=== PATIENT | female | born 1995 | race Hispanic/Latino ===

== ENCOUNTER 2017-01-27 22:18 | Emergency (ER) | payer SELFPAY ==
[2017-01-28 02:18] VITALS: BP 120/68
[2017-01-28 03:16] LABS: Bilirubin,Urine NEG (Negative); Blood,Urine NEG (Negative); Ketones,Urine NEG (Negative); Leukocyte Esterase,Urine LG (Negative); Mucus,Urine FEW /HPF; Nitrite,Urine NEG (Negative); Urobilinogen,Urine < 2.0 mg/dL (<2.0)
--- NOTE | 2017-01-28 03:58 | Emergency Department Report ---
ED Female HPI - General Chief complaint: Urogenital-Female Stated complaint: VAGINAL PAIN Time Seen by Provider: 01/28/17 03:38 Source: patient, family Mode of arrival: Ambulatory Limitations: No Limitations - History of Present Illness Initial comments: Patient here reports that she has sharp vaginal pain times one week. Patient says she had to insert 5 months ago and had a . She says she has not resumed sexual activity. Patient reports that she has vaginal discharge. Denies any vaginal bleeding. And she is also reporting that she doesn't think her control is regulated. Denies any abdominal pain or back pain. Denies any fever or chills. Denies any nausea or vomiting. She says she has no concerns for STD. MD Complaint: vaginal discharge, dysuria Onset/Timin -: week(s) Location: other (vaginal pain) Radiation: non-radiating Severity: severe Severity scale (0 -10): 8 Quality: burning Consistency: intermittent Improves with: none Worsens with: urination Are you Now?: No Associated Symptoms: vaginal discharge, dysuria. denies: vaginal bleeding, abdominal pain, nausea/vomiting, fever/chills, headaches, loss of appetite, hematuria, rash, seizure, shortness of breath, syncope, weakness - Related Data Sexually active: No Previous Rx's Medication Instructions Recorded Last Taken Type Fluconazole [Diflucan TAB] 100 mg PO QDAY #2 tablet 01/28/17 Unknown Rx Nitrofurantoin [place]/M-Cryst 100 mg PO Q12HR #14 capsule 01/28/17 Unknown Rx [Macrobid CAP] Nystatin Cream [Mycostatin Cream] 1 applic TP BID #1 tube 01/28/17 Unknown Rx Allergies Allergy/AdvReac Type Severity Reaction Status Date / Time Sulfa (Sulfonamide Allergy Hives Verified 04/22/14 20:32 Antibiotics) ED Review of Systems ROS: Stated complaint: VAGINAL PAIN Other details as noted in HPI Comment: All other systems reviewed and negative Constitutional: denies: chills, fever ENT: denies: throat pain Respiratory: no symptoms reported Cardiovascular: denies: chest pain, palpitations, edema, syncope Gastrointestinal: denies: abdominal pain, nausea, vomiting, diarrhea Genitourinary: dysuria, discharge. denies: urgency, frequency, hematuria, abnormal menses Musculoskeletal: denies: back pain, joint swelling, arthralgia, myalgia Skin: denies: rash Neurological: denies: headache, numbness, paresthesias ED Past Medical Hx - Past Medical History Previous Medical History?: Yes Hx Hypertension: Yes (GESTATIONAL HYPERTENSION) Hx Heart Attack/AMI: No Hx Congestive Heart Failure: No Hx Diabetes: No Hx Deep Vein Thrombosis: No Hx Renal Disease: No Hx Sickle Cell Disease: No Hx Seizures: No Hx Asthma: Yes (LAST ATTACK WAS 2014) Hx COPD: No Hx HIV: No - Surgical History Past Surgical History?: Yes Additional Surgical History: C-sections - Family History Family history: no significant - Social History Smoking Status: Never Smoker Substance Use Type: None - Medications Home Medications: Home Medications Medication Instructions Recorded Confirmed Last Taken Type Fluconazole [Diflucan TAB] 100 mg PO QDAY #2 tablet 01/28/17 Unknown Rx Nitrofurantoin [place]/M-Cryst 100 mg PO Q12HR #14 capsule 01/28/17 Unknown Rx [Macrobid CAP] Nystatin Cream [Mycostatin Cream] 1 applic TP BID #1 tube 01/28/17 Unknown Rx ED Physical Exam - General Limitations: No Limitations General appearance: alert, in no apparent distress - Head Head exam: Present: atraumatic, normocephalic, normal inspection - Eye Eye exam: Present: normal appearance, PERRL, EOMI Pupils: Present: normal accommodation - ENT ENT exam: Present: normal exam, normal orophraynx, mucous membranes moist, TM's normal bilaterally, normal external ear exam - Neck Neck exam: Present: normal inspection, full ROM. Absent: tenderness, lymphadenopathy - Respiratory Respiratory exam: Present: normal lung sounds bilaterally. Absent: respiratory distress, chest wall tenderness - Cardiovascular Cardiovascular Exam: Present: regular rate, normal rhythm, normal heart sounds - GI/Abdominal GI/Abdominal exam: Present: soft. Absent: distended - External exam: Present: erythema. Absent: swelling, lesions, lacerations, ecchymosis, bleeding Speculum exam: Present: vaginal discharge, cervical discharge. Absent: erythema , vaginal bleeding, foreign body, tissue, laceration Bi-manual exam: Present: normal bi-manual exam - Extremities Exam Extremities exam: Present: normal inspection, full ROM, normal capillary refill. Absent: tenderness, pedal edema, joint swelling, calf tenderness - Back Exam Back exam: Present: normal inspection, full ROM. Absent: tenderness, CVA tenderness (R), CVA tenderness (L), muscle spasm, paraspinal tenderness, vertebral tenderness, rash noted - Neurological Exam Neurological exam: Present: alert, oriented X3, normal gait - Psychiatric Psychiatric exam: Present: normal affect, normal mood - Skin Skin exam: Present: warm, dry, intact, normal color. Absent: rash ED Course Vital Signs 01/27/17 01/28/17 22:36 02:17 Temperature 98.5 F Pulse Rate 77 64 Respiratory 18 18 Rate Blood Pressure 107/66 Blood Pressure 120/68 [Right] O2 Sat by Pulse 100 100 Oximetry - Reevaluation(s) Reevaluation #1: 01/28/17 05:33 Patient given Flagyl 2 g by mouth, Rocephin 1 g IM to treat UTI and gonorrhea. She was also given Zithromax 1 g by mouth. Patient saw reveals that she has symmetric, no yeast or clue cells. Gonorrhea and chlamydia test is pending and patient chose to be treated empirically for gonorrhea and chlamydia. ED Medical Decision Making - Lab Data Lab Results 01/27/17 01/28/17 Range/Units 02:12 02:12 Urine Color Yellow (Yellow) Urine Turbidity Cloudy (Clear) Urine pH 7.0 (5.0-7.0) Ur Specific [place] 1.015 (1.003-1.030) Urine Protein 30 mg/dl (Negative) mg/dL Urine Glucose (UA) Neg (Negative) mg/dL Urine Ketones Neg (Negative) mg/dL Urine Blood Neg (Negative) Urine Nitrite Neg (Negative) Urine Bilirubin Neg (Negative) Urine Urobilinogen < 2.0 (<2.0) mg/dL Ur Leukocyte Esterase Lg (Negative) Urine WBC (Auto) 74.0 H (0.0-6.0) /HPF Urine RBC (Auto) 10.0 (0.0-6.0) /HPF U Epithel Cells (Auto) 2.0 (0-13.0) /HPF Urine Mucus Few /HPF Urine HCG, Qual Negative (Negative) Wet prep revealed rare Trichomonas, no clue cells and no yeast. Urine culture is pending. Gonorrhea and Chlamydia pending - Medical Decision Making ED course: Patient with acute cystitis without hematuria, positive for Trichomonas, dysuria and physical vaginitis. I discussed with patient that her swab came back positive for Trichomonas negative bacterial vaginosis and yeast infection. Lab results and treatment plan with patient her results and treatment plan discussed with patient. Patient was given Rocephin 1 g IM to treat urinary tract infection and gonorrhea. She was given Flagyl 2 to gram by mouth for Trichomonas and she chose to be treated for Chlamydia and was given Zithromax 1 g by mouth. She had no adverse reaction from medication. Patient discharged home with prescription for Macrobid, nystatin cream, Diflucan and to follow-up with her primary care physician and/or her [facility] doctor. Discussed with her that she had protein in her urine in this could be because she had hypertension during her given her but she'll need to follow-up with a doctor to get repeat urinalysis. She voiced understanding. Critical care attestation.: If time is entered above; I have spent that time in minutes in the direct care of this critically ill patient, excluding procedure time. ED Disposition Clinical Impression: Trichomonas vaginitis, Vulvovaginitis, STD (sexually transmitted disease), Acute cystitis without hematuria Proteinuria Qualifiers: Proteinuria type: unspecified Qualified Code(s): R80.9 - Proteinuria, unspecified Disposition: DISCHARGED TO HOME OR SELFCARE Is pt being admited?: No Does the pt Need Aspirin: No Condition: Stable Instructions: Safe Sex (ED), Trichomoniasis (ED), Urinary Tract Infection in Women (ED), Vulvovaginal Candidiasis (ED), Dysuria (ED) Additional Instructions: Please follow up with your primary care physician or your [facility] doctor in 7-10 days for repeat testing and for STD. Please avoid having sex for the next 10 days. practice safe sex. test for gonorrhea and chlamydia will take 5 days to return and he will be called with results if positive. Please take antibiotic as prescribed. You were treated in the emergency room for gonorrhea, Chlamydia and Trichomonas. You Have protein in your urine so you will need to follow up with your primary care physician for repeat urinalysis Please avoid drinking alcohol for the next 7 days as medication that was given to treat Trichomonas can have negative reaction with alcohol. Prescriptions: Fluconazole [Diflucan TAB] 100 mg PO QDAY #2 tablet Nitrofurantoin [place]/M-Cryst [Macrobid CAP] 100 mg PO Q12HR #14 capsule Nystatin Cream [Mycostatin Cream] 1 applic TP BID #1 tube Referrals: PRIMARY CARE,MD [Primary Care Provider] - 2-3 Days Your, [facility] [Other] - 7-10 days Forms: Accompanied Note, Work/School Release Form(ED)
[2017-01-28] MEDS ORDERED: ROCEPHIN IM STA (05:32)
[2017-01-28] MEDS ORDERED: FLAGYL PO ONE (05:32)
[2017-01-28] MEDS ORDERED: XYLOCAINE 1% MPF 5 mL INFILTRATI ONE (05:32)
[2017-01-28] MEDS ORDERED: ZITHROMAX PO ONE (05:32)
== END 2017-01-28 06:10 | disposition home or self-care (01) ==
LOC: ED 22:18
DX: N76.0 Acute vaginitis (principal); A64 Unspecified sexually transmitted disease; N30.00 Acute cystitis without hematuria; R80.9 Proteinuria, unspecified; J45.909 Unspecified asthma, uncomplicated; Z88.2 Allergy status to sulfonamides
CPT/HCPCS: 81001; 81025; 87086; 87210; 87591; 96372; 99284; J0696

== ENCOUNTER 2017-04-21 17:15 | Emergency (ER) | payer SELFPAY ==
[2017-04-21 18:25] VITALS: BP 119/79
--- NOTE | 2017-04-21 18:28 | Emergency Department Report ---
Entered by SHAHLA BRAUN, acting as scribe for ELO CADE NP. Chief Complaint: Urogenital-Female Stated Complaint: VAGINAL DISCOMFORT Time Seen by Provider: 04/21/17 18:18 - HPI History of Present Illness: 21 y/o female presents with intermittent vaginal itching and burning that started in January, months ago with the most recent episode being persistent for 4 days. Pt notes she was treated for STD but her partner was not. After she obtained similar Sx again, she was re-treated with her partner. She is here today stating that similar Sx have reoccurred. She denies having sexual contact since being treated for her second episode. Pt denies fever. She denies ETOH, tobacco or drug use. - ROS Review of Systems: +vaginal irritation and pain -fever - Exam Physical Exam: Pt is well, non-toxic, NAD. : exam not done in triage MSE screening note: Focused history and physical exam performed. Due to findings the following was ordered: ED Disposition for MSE Condition: Stable This documentation as recorded by the scribe,SHAHLA BRAUN,accurately reflects the service I personally performed and the decisions made by me,ELO CADE [employer]ESS OPERATOR.
[2017-04-21 19:00] LABS: Bilirubin,Urine NEG (Negative); Blood,Urine NEG (Negative); Ketones,Urine TR mg/dL (Negative); Leukocyte Esterase,Urine LG (Negative); Mucus,Urine 3+ /HPF; Nitrite,Urine NEG (Negative); Urobilinogen,Urine < 2.0 mg/dL (<2.0)
--- NOTE | 2017-04-22 00:04 | Emergency Department Report ---
ED Female HPI - General Chief complaint: Urogenital-Female Stated complaint: VAGINAL DISCOMFORT Time Seen by Provider: 04/21/17 18:18 Source: patient Mode of arrival: Ambulatory Limitations: No Limitations - History of Present Illness Initial comments: This is a 21-year-old female nontoxic, well nourished in appearance, no acute signs of distress that presents to the ED complaining of dysuria, vaginal itching, and yellow colored discharge. She stated she was here last month and treated for STD. Patient did state that her partner was not treated and she returned having sexual intercourse and symptoms has reoccurred. Patient is here today with similar symptoms as previous that was seen here for STD. Patient denies having any new sexual partner. Patient denies any EtOH, tobacco or drug use, fever, chills, chest pain, dizziness, headache, stiff neck, nausea or vomiting, pelvic pain, or abdominal pain. Patient states she has Mirena and last menstrual cycle 03/27/16. MD Complaint: vaginal discharge, dysuria, possible STD -: Gradual, month(s) (1) Severity: moderate Severity scale (0 -10): 6 Quality: burning Consistency: constant Improves with: none Worsens with: none Are you Now?: No Associated Symptoms: vaginal discharge, dysuria. denies: vaginal bleeding, abdominal pain, nausea/vomiting, fever/chills, headaches, loss of appetite, hematuria, rash, seizure, shortness of breath, syncope, weakness - Related Data Sexually active: Yes Previous Rx's Medication Instructions Recorded Last Taken Type Fluconazole [Diflucan TAB] 100 mg PO QDAY #2 tablet 01/28/17 Unknown Rx Nitrofurantoin [place]/M-Cryst 100 mg PO Q12HR #14 capsule 01/28/17 Unknown Rx [Macrobid CAP] Nystatin Cream [Mycostatin Cream] 1 applic TP BID #1 tube 01/28/17 Unknown Rx Nitrofurantoin [place]/M-Cryst 100 mg PO Q12HR #14 capsule 04/22/17 Unknown Rx [Macrobid CAP] metroNIDAZOLE [Flagyl] 500 mg PO Q12HR #14 tab 04/22/17 Unknown Rx Allergies Allergy/AdvReac Type Severity Reaction Status Date / Time Sulfa (Sulfonamide Allergy Hives Verified 04/22/14 20:32 Antibiotics) ED Review of Systems ROS: Stated complaint: VAGINAL DISCOMFORT Other details as noted in HPI Constitutional: denies: chills, fever Eyes: denies: eye pain, eye discharge, vision change ENT: denies: ear pain, throat pain Respiratory: denies: cough, shortness of breath, wheezing Cardiovascular: denies: chest pain, palpitations Endocrine: no symptoms reported Gastrointestinal: denies: abdominal pain, nausea, diarrhea Genitourinary: denies: urgency, dysuria, discharge Musculoskeletal: denies: back pain, joint swelling, arthralgia Skin: denies: rash, lesions Neurological: denies: headache, weakness, paresthesias Psychiatric: denies: anxiety, depression Hematological/Lymphatic: denies: easy bleeding, easy bruising ED Past Medical Hx - Past Medical History Previous Medical History?: Yes Hx Hypertension: Yes (GESTATIONAL HYPERTENSION) Hx Heart Attack/AMI: No Hx Congestive Heart Failure: No Hx Diabetes: No Hx Deep Vein Thrombosis: No Hx Renal Disease: No Hx Sickle Cell Disease: No Hx Seizures: No Hx Asthma: Yes (LAST ATTACK WAS 2014) Hx COPD: No Hx HIV: No - Surgical History Past Surgical History?: Yes Additional Surgical History: C-sections - Social History Smoking Status: Never Smoker Substance Use Type: Non Opiate Pain, Other - Medications Home Medications: Home Medications Medication Instructions Recorded Confirmed Last Taken Type Fluconazole [Diflucan TAB] 100 mg PO QDAY #2 tablet 01/28/17 Unknown Rx Nitrofurantoin [place]/M-Cryst 100 mg PO Q12HR #14 capsule 01/28/17 Unknown Rx [Macrobid CAP] Nystatin Cream [Mycostatin Cream] 1 applic TP BID #1 tube 01/28/17 Unknown Rx Nitrofurantoin [place]/M-Cryst 100 mg PO Q12HR #14 capsule 04/22/17 Unknown Rx [Macrobid CAP] metroNIDAZOLE [Flagyl] 500 mg PO Q12HR #14 tab 04/22/17 Unknown Rx ED Physical Exam - General Limitations: No Limitations General appearance: alert, in no apparent distress - Head Head exam: Present: atraumatic, normocephalic, normal inspection - Eye Eye exam: Present: normal appearance, PERRL, EOMI. Absent: scleral icterus, conjunctival injection, nystagmus, periorbital swelling, periorbital tenderness Pupils: Present: normal accommodation - ENT ENT exam: Present: normal exam, normal orophraynx, mucous membranes moist, TM's normal bilaterally, normal external ear exam - Neck Neck exam: Present: normal inspection, full ROM. Absent: tenderness, meningismus, lymphadenopathy, thyromegaly - Respiratory Respiratory exam: Present: normal lung sounds bilaterally. Absent: respiratory distress, wheezes, rales, rhonchi, stridor, chest wall tenderness, accessory muscle use, decreased breath sounds, prolonged expiratory - Cardiovascular Cardiovascular Exam: Present: regular rate, normal rhythm. Absent: systolic murmur, diastolic murmur, rubs, gallop - GI/Abdominal GI/Abdominal exam: Present: soft, normal bowel sounds. Absent: distended, tenderness, guarding, rebound, rigid, diminished bowel sounds - Rectal Rectal exam: Present: deferred - External exam: Present: other (Patient refused exam) Speculum exam: Present: other (patient refused exam) Bi-manual exam: Present: other (patient refused exam) - Extremities Exam Extremities exam: Present: normal inspection, full ROM, normal capillary refill. Absent: tenderness, pedal edema, joint swelling, calf tenderness - Back Exam Back exam: Present: normal inspection, full ROM. Absent: tenderness, CVA tenderness (R), CVA tenderness (L), muscle spasm, paraspinal tenderness, vertebral tenderness, rash noted - Neurological Exam Neurological exam: Present: alert, oriented X3, CN II-XII intact, normal gait, reflexes normal - Psychiatric Psychiatric exam: Present: normal affect, normal mood - Skin Skin exam: Present: warm, dry, intact, normal color. Absent: rash - Other Other exam information: Patient refused exam, stated she was here for 4 hours and just wants treatment. ED Course Vital Signs 04/21/17 18:21 Temperature 98.8 F Pulse Rate 58 L Respiratory 18 Rate Blood Pressure 119/79 O2 Sat by Pulse 98 Oximetry - Reevaluation(s) Reevaluation #1: 04/22/17 00:07 Patient is able to speak in full sentences with no signs of distress noted. Reevaluation #2: 04/22/17 00:08 Patient refused exam, stated she was here for 4 hours and just wants treatment. ED Medical Decision Making - Medical Decision Making This is a 21-year-old female that presents with possible STD versus UTI versus yeast infection. Patient refused exam is stated she was here for 4 hours and is wanting medically treated. I instructed the patient that upon examination I am unable to diagnose the patient of any medical condition. Patient stated she was here last month and wants to be treated for yeast and STD. Due to patient complaining of symptoms similar to her yeast infection. We treated with Flagyl. Patient was instructed not to consume any alcohol while taking Flagy. UA also indicates elevated white blood cell count and patient has dysuria which indicate UTI treated with Macrobid for 7 days. Patient received Rocephin as well as azithromycin in the ED for possible STD exposure. Patient was instructed to follow-up with her primary care doctor in 3 -5 days or if symptoms such as vaginal discharge, abdominal pain, pelvic pain, nausea, vomiting, chest pain or shortness of breath return to emergency room as was possible. At time time of discharge, the patient does not seem toxic or ill in appearance. No acute signs of distress noted. Patient agrees to discharge treatment plan of care. No further questions noted by the patient. Critical care attestation.: If time is entered above; I have spent that time in minutes in the direct care of this critically ill patient, excluding procedure time. ED Disposition Clinical Impression: Possible exposure to STD UTI (urinary tract infection) Qualifiers: Urinary tract infection type: site unspecified Hematuria presence: with hematuria Qualified Code(s): N39.0 - Urinary tract infection, site not specified ; R31.9 - Hematuria, unspecified Disposition: DC-01 TO HOME OR SELFCARE Is pt being admited?: No Does the pt Need Aspirin: No Condition: Stable Instructions: Vulvovaginal Candidiasis (ED), Metronidazole (By mouth), Nitrofurantoin Combination (By mouth), Safe Sex (ED) Additional Instructions: follow-up with your primary care doctor in 3-5 days or if symptoms such as vaginal discharge, abdominal pain, pelvic pain, nausea, vomiting, chest pain or shortness of breath return to emergency room as was possible. Do not consume any alcohol while taking Flagyl finish full course of antibiotics that was prescribed. Prescriptions: metroNIDAZOLE [Flagyl] 500 mg PO Q12HR #14 tab Nitrofurantoin [place]/M-Cryst [Macrobid CAP] 100 mg PO Q12HR #14 capsule Referrals: PRIMARY VERONICA, [Primary Care Provider] - 3-5 Days AUGUSTA ARANGO MD [Staff Physician] - 3-5 Days NGOC WIGGINS MD [Staff Physician] - 3-5 Days [facility] [Outside] - 3-5 Days [facility] [Outside] - 3-5 Days Forms: Work/School Release Form(ED)
[2017-04-22] MEDS ORDERED: XYLOCAINE 1% MPF 5 mL INFILTRATI ONE (01:31)
[2017-04-22] MEDS ORDERED: ROCEPHIN IM ONE (01:31)
[2017-04-22] MEDS ORDERED: ZITHROMAX PO ONE (01:31)
== END 2017-04-22 02:05 | disposition home or self-care (01) ==
LOC: ED 17:15
DX: N39.0 Urinary tract infection, site not specified (principal); R31.9 Hematuria, unspecified; J45.909 Unspecified asthma, uncomplicated; Z88.2 Allergy status to sulfonamides
CPT/HCPCS: 81001; 81025; 96372; 99284; J0696

== ENCOUNTER 2019-06-06 21:17 | Emergency (ER) | payer SELFPAY ==
--- NOTE | 2019-06-06 22:04 | Event Note ---
ED Screening Note Date of service: 06/06/19 Time: 22:02 ED Screening Note: This is a 23 y.o. F. that presents to the ER with abscess to posterior RLE and swelling for 3 days. This initial assessment/diagnostic orders/clinical plan/treatment(s) is/are subject to change based on patients health status, clinical progression and re- assessment by fellow clinical providers in the ED. Further treatment and workup at subsequent clinical providers discretion. Patient/guardian urged not to elope from the ED as their condition may be serious if not clinically assessed and managed. Initial orders include: ACC for further evaluation and I&D
[2019-06-07] MEDS ORDERED: CLEOCIN PO ONE (01:30)
[2019-06-07] MEDS ORDERED: NORCO 5/325 PO ONE (01:30)
--- NOTE | 2019-06-07 01:58 | Emergency Department Report ---
ED General Adult HPI - General Chief complaint: Wound/Laceration Stated complaint: POSSIBLE INSECT BITE RIGHT LEG Time Seen by Provider: 06/06/19 22:02 Source: patient Mode of arrival: Ambulatory Limitations: No Limitations - History of Present Illness Initial comments: This is a 23-year-old female presents to ED complaining of right lower leg redness and pain for the past week. Patient states about a week ago she thinks may have been bitten by a spider. Patient states shortly after that couple days later she noticed some redness to the area. She denies any fever or chills/nausea/vomiting/ shortness of breath/ Severity scale (0 -10): 5 - Related Data Previous Rx's Medication Instructions Recorded Last Taken Type Fluconazole [Diflucan TAB] 100 mg PO QDAY #2 tablet 01/28/17 Unknown Rx Nitrofurantoin [place]/M-Cryst 100 mg PO Q12HR #14 capsule 01/28/17 Unknown Rx [Macrobid CAP] Nystatin Cream [Mycostatin Cream] 1 applic TP BID #1 tube 01/28/17 Unknown Rx Nitrofurantoin [place]/M-Cryst 100 mg PO Q12HR #14 capsule 04/22/17 Unknown Rx [Macrobid CAP] metroNIDAZOLE [Flagyl] 500 mg PO Q12HR #14 tab 04/22/17 Unknown Rx Clindamycin [Clindamycin CAP] 300 mg PO TID #21 capsule 06/07/19 Unknown Rx Ibuprofen [Motrin] 800 mg PO Q8HR #30 tablet 06/07/19 Unknown Rx Allergies Allergy/AdvReac Type Severity Reaction Status Date / Time Sulfa (Sulfonamide Allergy Hives Verified 04/22/14 20:32 Antibiotics) ED Review of Systems ROS: Stated complaint: POSSIBLE INSECT BITE RIGHT LEG Other details as noted in HPI ED Past Medical Hx - Past Medical History Previous Medical History?: Yes Hx Hypertension: Yes (GESTATIONAL HYPERTENSION) Hx Heart Attack/AMI: No Hx Congestive Heart Failure: No Hx Diabetes: No Hx Deep Vein Thrombosis: No Hx Renal Disease: No Hx Sickle Cell Disease: No Hx Seizures: No Hx Asthma: Yes Hx COPD: No Hx HIV: No - Surgical History Past Surgical History?: Yes Additional Surgical History: C-sections - Social History Smoking Status: Never Smoker - Medications Home Medications: Home Medications Medication Instructions Recorded Confirmed Last Taken Type Fluconazole [Diflucan TAB] 100 mg PO QDAY #2 tablet 01/28/17 Unknown Rx Nitrofurantoin [place]/M-Cryst 100 mg PO Q12HR #14 capsule 01/28/17 Unknown Rx [Macrobid CAP] Nystatin Cream [Mycostatin Cream] 1 applic TP BID #1 tube 01/28/17 Unknown Rx Nitrofurantoin [place]/M-Cryst 100 mg PO Q12HR #14 capsule 04/22/17 Unknown Rx [Macrobid CAP] metroNIDAZOLE [Flagyl] 500 mg PO Q12HR #14 tab 04/22/17 Unknown Rx Clindamycin [Clindamycin CAP] 300 mg PO TID #21 capsule 06/07/19 Unknown Rx Ibuprofen [Motrin] 800 mg PO Q8HR #30 tablet 06/07/19 Unknown Rx ED Physical Exam - General Limitations: No Limitations ED Course Vital Signs 06/06/19 06/06/19 21:42 22:02 Temperature 98.5 F 98.5 F Pulse Rate 65 65 Respiratory 16 20 Rate Blood Pressure 116/66 Blood Pressure 116/66 [Left] O2 Sat by Pulse 100 100 Oximetry Critical care attestation.: If time is entered above; I have spent that time in minutes in the direct care of this critically ill patient, excluding procedure time. ED Disposition Clinical Impression: Cellulitis, Cellulitis of leg, right Disposition: DC-01 TO HOME OR SELFCARE Is pt being admited?: No Does the pt Need Aspirin: No Condition: Stable Instructions: Cellulitis (ED), Insect Bite or Sting (ED) Additional Instructions: Make sure to follow up with the primary care physician as discussed. Take all your medications as you've been prescribed. If you have any worsening symptoms or develop new symptoms please return to ED immediately. Prescriptions: Clindamycin [Clindamycin CAP] 300 mg PO TID #21 capsule Ibuprofen [Motrin] 800 mg PO Q8HR #30 tablet Referrals: PRIMARY CARE, [Primary Care Provider] - 3-5 Days [facility] [Outside] - 3-5 Days [facility] [Outside] - 3-5 Days Forms: Accompanied Note, Work/School Release Form(ED) Time of Disposition: 02:22
[2019-06-07 02:33] VITALS: BP 107/59
== END 2019-06-07 02:33 | disposition home or self-care (01) ==
LOC: ED 21:17
DX: L03.115 Cellulitis of right lower limb (principal); I10 Essential (primary) hypertension; Z79.899 Other long term (current) drug therapy; Z88.2 Allergy status to sulfonamides